=== PATIENT | female | born 1975 | race Caucasian/White ===

== ENCOUNTER 2022-09-09 19:27 | Inpatient (IN) ==
[2022-09-09] MEDS ORDERED: *HR* FentaNYL (PF) 100 MCG/2 ML VIAL IVP ONE (20:09)
[2022-09-09] MEDS ORDERED: *HR* Propofol 200 MG/20 ML VIAL IVP ONE ×2 (21:26→21:35)
[2022-09-09 21:31] LABS: Basophils % 0.3 %; Eosinophils # 0.1 K/mcL (0.0-0.6); Eosinophils % 1.2 %; Hemoglobin 12.7 g/dL (11.5-15.4); Immature Granulocytes % 0.3 % (0-4); Lymphocytes # 3.2 K/mcL (0.6-4.6); Lymphocytes % 30.4 %; Mean Corpuscular HGB Conc 31.8 g/dL (31.6-35.5); Mean Corpuscular Hemoglobin 28.3 pg (28.0-33.3); Mean Corpuscular Volume 89.1 fL (83.0-100.0); Mean Platelet Volume 8.9 fL (9.4-12.4); Monocytes # 0.4 K/mcL (0.0-1.3); Monocytes % 3.9 %; Neutrophils # 6.7 K/mcL (1.6-8.9); Platelet Count 227 K/mcL (140-400); Red Blood Count 4.49 M/mcL (3.82-4.97); Red Cell Distribution Width 14.3 % (11.5-14.5); Segmented Neutrophils % 63.9 %; White Blood Count 10.5 K/mcL (4.3-11.1)
[2022-09-09 22:26] LABS: BUN/Creatinine Ratio 31 (6-26); Blood Urea Nitrogen 19 mg/dL (6-20); Calcium 9.7 mg/dL (8.6-10.3); Carbon Dioxide 27 mEq/L (23-29); Chloride 105 mEq/L (98-107); Glucose 99 mg/dL (70-105); Osmolality,Calculated 290 (280-300); Potassium 4.7 mEq/L (3.5-5.1); Sodium 139 mEq/L (136-145)
[2022-09-09] MEDS ORDERED: Ondansetron 4 MG/2 ML VIAL IVP PRN (22:48)
[2022-09-09] MEDS ORDERED: Naloxone 0.4 MG/ML INJ IVP PRN (22:48)
[2022-09-09] MEDS ORDERED: 0.9 % Sodium Chloride 1,000 ML IVC SCH (23:00)
[2022-09-10] MEDS: Ketorolac 30 MG/ML VIAL IVP PRN ×2 (03:17→10:24)
[2022-09-10] MEDS ORDERED: Divalproex (24 HR) 500 MG TABLET PO SCH ×2 (10:00→21:00)
[2022-09-10] MEDS ORDERED: *HR* Midazolam HCl 2 MG/2 ML VIAL ONE (14:01)
[2022-09-10] MEDS ORDERED: *HR* FentaNYL (PF) 100 MCG/2 ML VIAL ONE (14:01)
[2022-09-10] MEDS ORDERED: *HR* Propofol 200 MG/20 ML VIAL IVP ONE ×2 (14:02→16:12)
[2022-09-10] MEDS ORDERED: Ropivacaine/PF 0.5% 30 ML VIAL ONE (14:07)
[2022-09-10] MEDS ORDERED: ROPIVACAINE/PF/NS 0.25% 1 EACH SYRINGE INTRAART ONE (14:07)
[2022-09-10] MEDS ORDERED: Bupivacaine/EPI 1:200k 0.25% 50 ML VIAL ONE (15:01)
[2022-09-10] MEDS ORDERED: CeFAZolin Syr 2,000MG/20 ML 2,000 MG/20 ML SYRINGE IVPB ONE (15:06)
[2022-09-10] MEDS ORDERED: EPHEDrine sulfate 50 MG/10 ML VIAL IVP ONE (15:36)
[2022-09-10] MEDS ORDERED: *HR* Rocuronium Bromide 50 MG/5 ML VIAL ONE (16:24)
[2022-09-10] MEDS ORDERED: Sugammadex Sodium 200 MG/2 ML VIAL IV ONE (16:34)
[2022-09-10] MEDS: 0.9 % Sodium Chloride 1,000 ML IVC SCH (18:17)
[2022-09-10] MEDS: Divalproex (24 HR) 250 MG TABLET PO SCH (18:59)
[2022-09-11] MEDS: 0.9 % Sodium Chloride 1,000 ML IVC SCH ×3 (00:55→23:17)
[2022-09-11] MEDS: Divalproex (24 HR) 250 MG TABLET PO SCH (08:06)
[2022-09-11] MEDS: Cholecalciferol (D-3) 1,000 UNIT (25MCG) TABLET PO SCH (08:07)
[2022-09-11] MEDS: lisinopriL 10 MG TABLET PO SCH (08:07)
[2022-09-11] MEDS: ceFAZolin 2,000 MG in 0.9 % Sodium Chloride 100 ML IVPB SCH ×2 (17:48→23:18)
[2022-09-12] MEDS: Cholecalciferol (D-3) 1,000 UNIT (25MCG) TABLET PO SCH (07:21)
[2022-09-12] MEDS: lisinopriL 10 MG TABLET PO SCH (07:21)
[2022-09-12] MEDS: Divalproex (24 HR) 250 MG TABLET PO SCH (07:21)
[2022-09-12] MEDS: 0.9 % Sodium Chloride 1,000 ML IVC SCH ×3 (07:23→18:42)
[2022-09-12] MEDS: Ketorolac 30 MG/ML VIAL IVP PRN ×2 (09:53→20:10)
[2022-09-13] MEDS: 0.9 % Sodium Chloride 1,000 ML IVC SCH ×2 (02:45→10:09)
[2022-09-13] MEDS: lisinopriL 10 MG TABLET PO SCH (09:12)
[2022-09-13] MEDS: Divalproex (24 HR) 250 MG TABLET PO SCH (09:12)
[2022-09-13] MEDS: Cholecalciferol (D-3) 1,000 UNIT (25MCG) TABLET PO SCH (09:12)
[2022-09-13] MEDS: Ketorolac 30 MG/ML VIAL IVP PRN ×2 (09:22→16:12)
[2022-09-13 15:44] LABS: Adenovirus Not Detected (Not Detect); Bordetella Pertussis Not Detected (Not Detect); Chlamydophila pneumoniae Not Detected (Not Detect); Coronavirus 229E Not Detected (Not Detect); Coronavirus HKU1 Not Detected (Not Detect); Coronavirus NL63 Not Detected (Not Detect); Coronavirus OC43 Not Detected (Not Detect); Human Metapneumovirus Not Detected (Not Detect); Human Rhinovirus/Enterovirus Not Detected (Not Detect); Influenza A Subtype 2009 H1 Not Detected (Not Detect); Influenza B Not Detected (Not Detect); Mycoplasma pneumoniae Not Detected (Not Detect); Parainfluenza Virus 1 Not Detected (Not Detect); Parainfluenza Virus 2 Not Detected (Not Detect); Parainfluenza Virus 3 Not Detected (Not Detect); Parainfluenza Virus 4 Not Detected (Not Detect); Respiratory Syncytial Virus Not Detected (Not Detect); SARS-CoV-2 Not Detected (Not Detect)
[2022-09-14] MEDS: Ketorolac 30 MG/ML VIAL IVP PRN (00:04)
[2022-09-14 07:25] VITALS: BP 133/84; PULSE 83; TEMP 98.1; O2SAT 96
[2022-09-14] MEDS: Divalproex (24 HR) 250 MG TABLET PO SCH (07:43)
[2022-09-14] MEDS: Cholecalciferol (D-3) 1,000 UNIT (25MCG) TABLET PO SCH (07:43)
[2022-09-14] MEDS: lisinopriL 10 MG TABLET PO SCH (07:43)
== END 2022-09-14 12:31 | DRG 493 ==
LOC: EMEROOARM 19:27 → 3BNU 19:27 → SUATTDRO 22:55 → 3BNU 23:38
PROVIDERS: ADMIT Nurse Practitioner; ATTEND Nurse Practitioner